=== PATIENT | female | born 1970 | race Caucasian/White ===

== ENCOUNTER → 2018-08-22 | Outpatient (CLI) | payer OTHER ==
[2018-08-22 08:39] LABS: ABSOLUTE LYMPHOCYTES 1.2 thou/uL (0.8-5.3); ABSOLUTE MONOCYTES 0.3 thou/uL (0.0-1.2); ABSOLUTE NEUTROPHILS 2.4 thou/uL (1.6-8.1); BASOPHILS 0.7 %; EOSINOPHILS 1.2 %; HEMATOCRIT 34.5 % (37.0-47.0); HEMOGLOBIN 11.3 gm/dL (12.0-15.0); LYMPHOCYTES 29.4 %; MCH 24.4 pg (26.0-34.0); MCHC 32.7 g/dL (28.0-37.0); MCV 74.8 fL (80.0-100.0); MONOCYTES 7.8 %; NUCLEATED RBCS 0 /100WBC; PLATELET COUNT* 263 thou/uL (150-400); POLYS 60.9 %; RBC 4.61 mil/uL (4.20-5.00); RDW-CV 14.8 % (10.5-14.5)
[2018-08-22 09:50] LABS: ALBUMIN 3.7 g/dL (3.4-5.0); ALKALINE PHOSPHATASE 97 U/L (46-116); ANION GAP 9 mmol/L (7-16); BUN 7 mg/dL (7-18); CALCIUM 8.3 mg/dL (8.5-10.1); CHLORIDE 103 mmol/L (98-107); CHOLESTEROL 175 mg/dL (<200); CO2 29 mmol/L (21-32); CREATININE 0.8 mg/dL (0.6-1.3); GLUCOSE 99 mg/dL (70-99); HDL CHOLESTEROL 57 mg/dL (>40); LDL CHOLESTEROL 104 mg/dL (<100); POTASSIUM 3.6 mmol/L (3.5-5.1); SGOT 23 U/L (15-37); SGPT 27 U/L (30-65); SODIUM 141 mmol/L (136-145); TC:HDL 3.1 Ratio (Not establshd); TOTAL BILIRUBIN 0.4 mg/dL (<0.1-1.0); TOTAL PROTEIN 7.2 g/dL (6.4-8.2); TRIGLYCERIDE 70 mg/dL (<150); VLDL 14 mg/dL (<40)
[2018-08-22 09:51] LABS: SERUM ASSESSMENT Clear
== END ==
LOC: M.LAB 08:07
PROVIDERS: Nurse Practitioner Family
DX: Z00.01 Encounter for general adult medical examination with abnormal findings (principal); Z12.31 Encounter for screening mammogram for malignant neoplasm of breast; R53.83 Other fatigue

== ENCOUNTER → 2020-04-16 | Outpatient (CLI) | payer OTHER ==
[2020-04-16 10:31] LABS: ABSOLUTE EOSINOPHILS 0.2 thou/uL (0.0-0.7); ABSOLUTE LYMPHOCYTES 1.2 thou/uL (0.8-5.3); ABSOLUTE MONOCYTES 0.3 thou/uL (0.0-1.2); ABSOLUTE NEUTROPHILS 2.4 thou/uL (1.6-8.1); BASOPHILS 0.9 %; EOSINOPHILS 3.8 %; HEMATOCRIT 27.4 % (37.0-47.0); HEMOGLOBIN 8.6 gm/dL (12.0-15.0); LYMPHOCYTES 28.9 %; MCH 19.4 pg (26.0-34.0); MCHC 31.3 g/dL (28.0-37.0); MONOCYTES 6.9 %; MPV 8.8 fl. (7.2-11.1); NUCLEATED RBCS 0 /100WBC; PLATELET COUNT* 276 thou/uL (150-400); POLYS 59.5 %; RBC 4.42 mil/uL (4.20-5.00); RDW-CV 18.2 % (10.5-14.5); WBC 4.1 thou/uL (4.0-11.0)
[2020-04-16 10:45] LABS: ALBUMIN 3.6 g/dL (3.4-5.0); ALKALINE PHOSPHATASE 81 U/L (46-116); ANION GAP 7 mmol/L (7-16); BUN 10 mg/dL (7-18); CALCIUM 8.3 mg/dL (8.5-10.1); CHLORIDE 104 mmol/L (98-107); CHOLESTEROL 164 mg/dL (<200); CO2 27 mmol/L (21-32); CREATININE 0.8 mg/dL (0.6-1.3); GLUCOSE 102 mg/dL (70-99); HDL CHOLESTEROL 50 mg/dL (>40); LDL CHOLESTEROL 98 mg/dL (<100); POTASSIUM 3.8 mmol/L (3.5-5.1); SGOT 12 U/L (15-37); SGPT 17 U/L (30-65); SODIUM 138 mmol/L (136-145); TC:HDL 3.3 Ratio (Not establshd); TOTAL BILIRUBIN 0.4 mg/dL (<0.1-1.0); TOTAL PROTEIN 7.1 g/dL (6.4-8.2); TRIGLYCERIDE 84 mg/dL (<150); VLDL 17 mg/dL (<40)
[2020-04-16 10:46] LABS: SERUM ASSESSMENT A
[2020-04-17 02:06] LABS: GLYCOHEMOGLOBIN (HGB A1C) 5.1 % (4.8-5.6)
== END ==
LOC: M.LAB 10:13
PROVIDERS: ATTEND Nurse Practitioner Family
DX: Z12.31 Encounter for screening mammogram for malignant neoplasm of breast (principal); Z00.01 Encounter for general adult medical examination with abnormal findings; F33.1 Major depressive disorder, recurrent, moderate

== ENCOUNTER → 2020-05-09 | Outpatient (CLI) | payer OTHER | LOC: M.ULTRA 09:00 | PROVIDERS: ATTEND Obstetrics & Gynecology | DX: D25.9 Leiomyoma of uterus, unspecified (principal); N92.0 Excessive and frequent menstruation with regular cycle; Z01.411 Encounter for gynecological examination (general) (routine) with abnormal findings ==

== ENCOUNTER → 2020-07-03 | Outpatient (CLI) | payer OTHER | LOC: M.LAB 14:42 | PROVIDERS: ATTEND Obstetrics & Gynecology | DX: Z20.828 Contact with and (suspected) exposure to other viral communicable diseases (principal) ==

== ENCOUNTER → 2020-11-01 | Outpatient (CLI) | payer OTHER ==
[2020-11-01 17:15] LABS: ABSOLUTE LYMPHOCYTES 1.2 thou/uL (0.8-5.3); ABSOLUTE MONOCYTES 0.5 thou/uL (0.0-1.2); ABSOLUTE NEUTROPHILS 2.2 thou/uL (1.6-8.1); EOSINOPHILS 1.2 %; HEMATOCRIT 39.5 % (37.0-47.0); HEMOGLOBIN 13.2 gm/dL (12.0-15.0); LYMPHOCYTES 30.1 %; MCH 26.8 pg (26.0-34.0); MCHC 33.3 g/dL (28.0-37.0); MCV 80.4 fL (80.0-100.0); MONOCYTES 11.5 %; MPV 9.1 fl. (7.2-11.1); NUCLEATED RBCS 0 /100WBC; PLATELET COUNT* 193 thou/uL (150-400); POLYS 56.2 %; RBC 4.92 mil/uL (4.20-5.00); RDW-CV 14.4 % (10.5-14.5)
[2020-11-01 17:27] LABS: ALBUMIN 3.7 g/dL (3.4-5.0); ALKALINE PHOSPHATASE 96 U/L (46-116); ANION GAP 9 mmol/L (7-16); BUN 15 mg/dL (7-18); CALCIUM 9.1 mg/dL (8.5-10.1); CHLORIDE 101 mmol/L (98-107); CHOLESTEROL 199 mg/dL (<200); CO2 30 mmol/L (21-32); CREATININE 0.9 mg/dL (0.6-1.3); GLUCOSE 88 mg/dL (70-99); HDL CHOLESTEROL 57 mg/dL (>40); LDL CHOLESTEROL 121 mg/dL (<100); SGOT 21 U/L (15-37); SGPT 30 U/L (30-65); SODIUM 140 mmol/L (136-145); TC:HDL 3.5 Ratio (Not establshd); TOTAL BILIRUBIN 0.3 mg/dL (<0.1-1.0); TOTAL PROTEIN 7.3 g/dL (6.4-8.2); TRIGLYCERIDE 109 mg/dL (<150); VLDL 22 mg/dL (<40)
[2020-11-01 17:34] LABS: SERUM ASSESSMENT CLEAR
== END ==
LOC: M.LAB 16:52
PROVIDERS: ATTEND Nurse Practitioner Family
DX: Z00.00 Encounter for general adult medical examination without abnormal findings (principal); R00.2 Palpitations; R53.83 Other fatigue

== ENCOUNTER 2020-11-29 06:55 | Emergency (ER) | payer OTHER ==
[~2020-11-29] VITALS: Ht 167.6 cm; Wt 67.1 kg
[2020-11-29] MEDS ORDERED: ESTRADIOL 1 MG T1 M1 PO (07:08)
[2020-11-29] MEDS ORDERED: WELLBUTRIN SR100 MG PO (07:08)
[2020-11-29 07:20] LABS: URINE BILIRUBIN NEGATIVE (Negative); URINE BLOOD 3+ (Negative); URINE CLARITY SL CLOUDY; URINE COLOR YELLOW; URINE GLUCOSE-RANDOM NEGATIVE (Negative); URINE KETONES NEGATIVE (Negative); URINE LEUKOCYTES-REFLEX 3+ (Negative); URINE NITRITE-REFLEX NEGATIVE (Negative); URINE PROTEIN NEGATIVE (Negative); URINE SPECIFIC GRAVITY <= 1.005 (1.005-1.030); URINE UROBILINOGEN 0.2 E.U./dl (0.2-1.0)
[2020-11-29 07:27] LABS: SQUAMOUS 4-10 Moderate /LPF (0-3); URINE WBC-REFLEX >25 Many /HPF (0-5)
[2020-11-29 07:28] LABS: CASTS None Seen /LPF (None Seen); CRYSTALS None Seen /LPF (None Seen)
[2020-11-29] MEDS ORDERED: MACROBID 100 M100 M1 PO (07:28)
[2020-11-29 07:30] VITALS: BP 145/88
== END 2020-11-29 07:30 | disposition home or self-care (01) ==
LOC: M.ERS 06:55
PROVIDERS: Emergency Medicine
DX: N39.0 Urinary tract infection, site not specified (principal); Z90.710 Acquired absence of both cervix and uterus

== ENCOUNTER → 2020-12-18 | Outpatient (CLI) | payer OTHER ==
[~2020-12-18] MED LIST: ESTRADIOL 1 MG T1 M1 PO; MACROBID 100 M100 M1 PO; WELLBUTRIN SR100 MG PO
--- NOTE | 2020-12-18 09:48 | 2DMMODE ---
[place] [address] 2 D/M-MODE ECHOCARDIOGRAM Name: SALOMÓN GELLER Room: [facility]#: [id number] Admission: 12/18/20 Attend Phys: Adonay Nunez MD Discharge: Date of : 70 Date of Service: 12/18/20 0947 Report #: [id number] THIS REPORT FOR: cc: Мария Campuzano Tami FNP Blick, David R. MD [facility] ~ APPROVED REPORT Study performed: 12/18/2020 07:53:59 EXAM: Comprehensive 2D, Doppler, and color-flow Echocardiogram Patient Location: Out-Patient Status: routine BSA: 1.76 HR: 76 bpm Rhythm: NSR Other Information Study Quality: Excellent Indications Palpitations 2D Dimensions IVSd: 6.78 (7-11mm) LVOT Diam: 19.00 (18-24mm) LVDd: 42.93 mm PWd: 6.68 (7-11mm) Ascending Ao: 30.21 (22-36mm) LVDs: 25.46 (25-40mm) Aortic Root: 30.28 mm Volumes Left Atrial Volume (Systole) LA ESV Index: 20.70 mL/m2 Aortic Valve AoV Peak Quinton.: 1.24 m/s AO Peak Gr.: 6.16 mmHg LVOT Max P.54 mmHg AO Mean Gr.: 3.08 mmHg LVOT Mean P.93 mmHg LVOT Max V: 1.07 m/s AO V2 VTI: 22.23 cm LVOT Mean V: 0.63 m/s JOLYNN (VTI): 2.64 cm2 LVOT V1 VTI: 20.[place] [address] 2 D/M-MODE ECHOCARDIOGRAM Name: SALOMÓN GELLER Room: [facility]#: [id number] Admission: 12/18/20 Attend Phys: Adonay Nunez MD Discharge: Date of : 70 Date of Service: 12/18/20 0947 Report #: [id number] Mitral Valve E/A Ratio: 1.69 MV Decel. Time: 205.12 ms MV E Max Quinton.: 0.75 m/s MV PHT: 59.49 ms MVA (PHT): 3.70 cm2 TDI E/Lateral E': 4.17 E/Medial E': 5.00 Medial E' Quinton.: 0.15 m/s Lateral E' Quinton.: 0.18 m/s Pulmonary Valve PV Peak Quinton.: 0.81 m/s PV Peak Gr.: 2.62 mmHg Left Ventricle The left ventricle is normal size. There is normal LV segmental wall motion. There is normal left ventricular wall thickness. Left ventricular systolic function is normal. The left ventricular ejection fraction is within the normal range. LVEF is 55-60%. The left ventricular diastolic function is normal. Right Ventricle The right ventricle is normal size. The right ventricular systolic function is normal. Atria The left atrium size is normal. The right atrium size is normal. Aortic Valve The aortic valve is normal in structure. No aortic regurgitation is present. There is no aortic valvular stenosis. Mitral Valve The mitral valve is normal in structure. Mild mitral regurgitation. No evidence of mitral valve stenosis. Tricuspid Valve The tricuspid valve is normal in structure. Unable to assess PA pressure. Trace tricuspid regurgitation. Pulmonic Valve The pulmonary valve is normal in structure. There is no pulmon[place] [address] 2 D/M-MODE ECHOCARDIOGRAM Name: DUYENSALOMÓN WILL Room: [facility]#: [id number] Admission: 12/18/20 Attend Phys: Adonay Nunez MD Discharge: Date of : 70 Date of Service: 12/18/20 0947 Report #: [id number] Great Vessels The aortic root is normal in size. IVC is normal in size and collapses >50% with inspiration. Pericardium There is no pericardial effusion. <Conclusion> LVEF is 55-60%. Mild mitral regurgitation. <ELECTRONICALLY SIGNED> By: Adonay Nunez MD, [facility] 12/18/2047 6 6 Adonay Nunez MD, [facility] /INF
== END ==
LOC: M.CRD 07:50
PROVIDERS: ATTEND Internal Medicine Cardiovascular Disease
DX: I34.0 Nonrheumatic mitral (valve) insufficiency (principal)

== ENCOUNTER → 2021-05-30 | Outpatient (CLI) | payer OTHER | LOC: M.RAD 08:34 | PROVIDERS: ATTEND Nurse Practitioner Family | DX: Z12.31 Encounter for screening mammogram for malignant neoplasm of breast (principal); M25.562 Pain in left knee ==

== ENCOUNTER → 2021-06-04 | Outpatient (CLI) | payer OTHER ==
[2021-06-04 07:02] LABS: ABSOLUTE EOSINOPHILS 0.1 thou/uL (0.0-0.7); ABSOLUTE LYMPHOCYTES 1.1 thou/uL (0.8-5.3); ABSOLUTE MONOCYTES 0.3 thou/uL (0.0-1.2); ABSOLUTE NEUTROPHILS 2.6 thou/uL (1.6-8.1); BASOPHILS 0.6 %; EOSINOPHILS 1.5 %; HEMATOCRIT 40.9 % (37.0-47.0); HEMOGLOBIN 13.8 gm/dL (12.0-15.0); LYMPHOCYTES 26.6 %; MCH 28.3 pg (26.0-34.0); MCHC 33.7 g/dL (28.0-37.0); MCV 83.9 fL (80.0-100.0); MONOCYTES 7.6 %; MPV 9.5 fl. (7.2-11.1); NUCLEATED RBCS 0 /100WBC; PLATELET COUNT* 209 thou/uL (150-400); POLYS 63.7 %; RBC 4.88 mil/uL (4.20-5.00); RDW-CV 13.3 % (10.5-14.5); WBC 4.1 thou/uL (4.0-11.0)
[2021-06-04 07:15] LABS: ALBUMIN 3.9 g/dL (3.4-5.0); ALKALINE PHOSPHATASE 94 U/L (46-116); ANION GAP 7 mmol/L (7-16); BUN 12 mg/dL (7-18); CALCIUM 8.7 mg/dL (8.5-10.1); CHLORIDE 105 mmol/L (98-107); CHOLESTEROL 207 mg/dL (<200); CO2 31 mmol/L (21-32); CREATININE 0.8 mg/dL (0.6-1.3); GLUCOSE 106 mg/dL (70-99); HDL CHOLESTEROL 74 mg/dL (>40); LDL CHOLESTEROL 122 mg/dL (<100); POTASSIUM 4.1 mmol/L (3.5-5.1); SGOT 16 U/L (15-37); SGPT 20 U/L (30-65); SODIUM 143 mmol/L (136-145); TC:HDL 2.8 Ratio (Not establshd); TOTAL BILIRUBIN 0.7 mg/dL (<0.1-1.0); TOTAL PROTEIN 7.4 g/dL (6.4-8.2); TRIGLYCERIDE 56 mg/dL (<150); VLDL 11 mg/dL (<40)
[2021-06-04 07:16] LABS: SERUM ASSESSMENT Clear
[2021-06-05 07:08] LABS: GLYCOHEMOGLOBIN (HGB A1C) 4.9 % (4.8-5.6)
== END ==
LOC: M.LAB 06:36
PROVIDERS: ATTEND Nurse Practitioner Family
DX: R73.09 Other abnormal glucose (principal); R53.83 Other fatigue